=== PATIENT | male | born 1950 | race Caucasian/White ===

== ENCOUNTER 2018-02-04 20:41 | Emergency (ER) | payer BC, MEDICARE ==
--- NOTE | 2018-02-04 20:43 | UC ---
Eye Complaint HPI - HPI Summary HPI Summary: 67 yo male presents with right eye irritation. He tells me that earlier today he had a right eye injection of Avastin by Dr. Roberts. He states that he has done this many times and prior to the injection his eye becomes anesthetized and betadine is applied before the injection. He states that if he is not numb completely he will sustain a corneal abrasion from the injection and require him to use his at home ointment and be in a "dark room for 2-3 days". OR if the betadine is not completely washed out of his eye he will have eye irritation, but be improved by the next day. He is requesting a check for a corneal abrasion. Currently his right eye is painful to keep open and has a FB sensation. No eye pressure or pain behind the eye. Denies blurry vision, headache, dizziness. - History of Current Complaint Stated Complaint: EYE COMPLAINT Time Seen by Provider: 02/04/18 20:43 Hx Obtained From: Patient Onset/Duration: Gradual Onset Severity Initially: Moderate Severity Currently: Moderate Pain Intensity: 8 Pain Scale Used: 0-10 Numeric - Allergies/Home Medications Allergies/Adverse Reactions: Allergies Allergy/AdvReac Type Severity Reaction Status Date / Time amoxicillin [From Augmentin] Allergy Intermediate Hives Verified 02/04/18 21:03 clavulanic acid Allergy Intermediate Hives Verified 02/04/18 21:03 [From Augmentin] Home Medications: Home Medications Aspirin 81 mg CHEW TAB* [Aspirin Low Dose TAB*] 81 mg PO DAILY 02/04/18 [ History Confirmed 02/04/18] Atorvastatin* [Lipitor*] 40 mg PO 1700 02/04/18 [History Confirmed 02/04/18] Gabapentin 2,000 mg PO DAILY WITH MEAL 02/04/18 [History Confirmed 02/04/18] buPROPion HCl [Bupropion HCl Xl] 150 mg PO DAILY WITH MEAL 02/04/18 [History Confirmed 02/04/18] PMH/Surg Hx/FS Hx/Imm Hx Endocrine History: Dyslipidemia Psychological History: Anxiety, Depression - Surgical History Surgical History: Yes - Family History Known Family History: Positive: Cardiac Disease, Hypertension - Social History Occupation: Retired Lives: With Family Alcohol Use: Occasionally Substance Use Type: None Smoking Status (MU): Never Smoked Tobacco Review of Systems All Other Systems Reviewed And Are Negative: Yes Constitutional: Positive: Negative Skin: Positive: Negative Eyes: Positive: Eye Redness ENT: Positive: Negative Respiratory: Positive: Negative Cardiovascular: Positive: Negative Neurovascular: Positive: Negative Neurological: Positive: Negative Psychological: Positive: Negative Physical Exam - Summary Physical Exam Summary: GENERAL: WDWN. No pain distress. SKIN: No rashes, sores, lesions, or open wounds. HEENT: Head: AT/NC Eyes: EOM intact. PERRLA. RIGHT EYE: Mild scleral injection. Conjunctiva without erythema or inflammation. Tearing clear. Fluorescein exam: Mild area of increased uptake at prior injection site with appreciable abrasion. No antony sign. Nose: NTTP maxillary and frontal sinus. NECK: Supple. Nontender. No lymphadenopathy. CHEST: No accessory muscle use. Breathing comfortably and in no distress. CV: Pulses intact. Cap refill <2seconds NEURO: Alert. PSYCH: Age appropriate behavior. Triage Information Reviewed: Yes Vital Signs: Vital Signs: Temp Pulse Resp BP Pulse Ox 99.0 F 79 18 152/80 98 02/04/18 20:59 02/04/18 20:59 02/04/18 20:59 02/04/18 20:59 02/04/18 20:59 Vital Signs Reviewed: Yes Eye Complaint Course/Dx - Course Course Of Treatment: Tetracaine was applied and pt experienced great pain relief. Fluorescein dye exam was normal. He declined further treatment and says that his discomfort and irritation will "be gone by tomorrow". I advised him that if his symptoms worsen or are not improving to f/u with Dr. Roberts as soon as possible. - Differential Dx/Diagnosis Provider Diagnosis: Irritation of right eye Discharge - Sign-Out/Discharge Documenting (check all that apply): Patient Departure All imaging exams completed and their final reports reviewed: No Studies - Discharge Plan Condition: Stable Disposition: HOME Referrals: Steve Mccurdy MD [Primary Care Provider] - Additional Instructions: If you develop a fever, shortness of breath, chest pain, new or worsening symptoms - please call your PCP or go to the ED. If your symptoms do not improve, please call Dr. Roberts for a follow up - Billing Disposition and Condition Condition: STABLE Disposition: Home
[2018-02-04] MEDS ORDERED: Tetracaine 0.5% OPTH.SOL 4 ML* 1 DROP BTL RIGHT EYE ONE (20:49)
[2018-02-04] MEDS ORDERED: Fluorescein Sodium TOPICAL* 1 MG TEST STRIP OPHTHALMIC ONE (20:49)
[2018-02-04 21:03] VITALS: BP 152/80
== END 2018-02-04 21:10 | disposition home or self-care (01) ==
LOC: UCEAST 20:41
DX: H57.89 Other specified disorders of eye and adnexa (principal); Z88.0 Allergy status to penicillin; Z88.8 Allergy status to other drugs, medicaments and biological substances; E78.5 Hyperlipidemia, unspecified
CPT/HCPCS: 99211; A9270-GY; G0463